=== PATIENT | female | born 1955 | race Caucasian/White ===

== ENCOUNTER 2019-10-16 06:39 | Emergency (ER) | payer MEDICARE, OTHER ==
[~2019-10-16] VITALS: Ht 172.7 cm; Wt 77.1 kg
[2019-10-16] MEDS ORDERED: NORVASC10 MG PO (06:49)
[2019-10-16] MEDS ORDERED: LISINOPRIL2.5 MG PO (06:49)
[2019-10-16] MEDS ORDERED: SIMVASTATIN80 MG PO (06:50)
[2019-10-16] MEDS ORDERED: TRAZODONE HCL50 MG PO (06:50)
[2019-10-16] MEDS ORDERED: VITAMIN D3400 UNI2 PO (06:50)
[2019-10-16] MEDS ORDERED: FLEXERIL PO (06:51)
[2019-10-16 07:24] LABS: URINE BILIRUBIN NEGATIVE (Negative); URINE BLOOD TRACE (Negative); URINE CLARITY CLEAR; URINE COLOR YELLOW; URINE GLUCOSE-RANDOM NEGATIVE (Negative); URINE KETONES 1+ (Negative); URINE NITRITE-REFLEX NEGATIVE (Negative); URINE PROTEIN NEGATIVE (Negative); URINE SPECIFIC GRAVITY 1.025 (1.005-1.030); URINE UROBILINOGEN 0.2 E.U./dl (0.2-1.0)
[2019-10-16 07:28] LABS: INFLUENZA A ANTIGEN Negative (Negative); INFLUENZA B ANTIGEN Negative (Negative)
[2019-10-16 07:33] LABS: URINE LEUKOCYTES-REFLEX 2+ (Negative)
[2019-10-16 07:40] LABS: SQUAMOUS >10 Many /LPF (0-3)
[2019-10-16 07:41] LABS: URINE RBC 0-2 Rare /HPF (0-2); URINE WBC-REFLEX 6-15 Few /HPF (0-5)
[2019-10-16 07:42] LABS: BACTERIA-REFLEX 1-9 Few /HPF (None Seen); HYALINE CASTS 0-3 Few /LPF (None Seen); MUCUS 0-3 Light strn/LPF (None Seen)
[2019-10-16 07:43] LABS: CALCIUM OXALATE 0-3 Few /LPF (None Seen); FINE GRANULAR CASTS 0-3 Few /LPF (None Seen)
[2019-10-16 07:44] LABS: HEMATOCRIT 40.5 % (37.0-47.0); HEMOGLOBIN 13.7 gm/dL (12.0-15.0); MCH 29.7 pg (26.0-34.0); MCHC 33.9 g/dL (28.0-37.0); MCV 87.5 fL (80.0-100.0); MPV 8.2 fl. (7.2-11.1); NUCLEATED RBCS 0 /100WBC; PLATELET COUNT* 311 thou/uL (150-400); RBC 4.62 mil/uL (4.20-5.00); RDW-CV 13.3 % (10.5-14.5); WBC 11.8 thou/uL (4.0-11.0)
[2019-10-16 08:01] LABS: CALCIUM 11.2 mg/dL (8.5-10.1); CREATININE 0.6 mg/dL (0.6-1.3); POTASSIUM 3.9 mmol/L (3.5-5.1)
[2019-10-16 08:06] LABS: ALBUMIN 3.2 g/dL (3.4-5.0); TOTAL BILIRUBIN 0.8 mg/dL (<0.1-1.0); TOTAL PROTEIN 6.4 g/dL (6.4-8.2)
[2019-10-16 08:22] LABS: ABSOLUTE EOSINOPHILS 0.1 thou/uL (0.0-0.7); ABSOLUTE LYMPHOCYTES 0.4 thou/uL (0.8-5.3); ABSOLUTE MONOCYTES 0.5 thou/uL (0.0-1.2); ABSOLUTE NEUTROPHILS 10.9 thou/uL (1.6-8.1)
[2019-10-16 08:23] LABS: PLATELET ESTIMATE ADEQUATE
[2019-10-16] MEDS ORDERED: KEFLEX500 M1 PO (09:44)
[2019-10-16] MEDS ORDERED: DOXYCYCLINE 10100 M2 PO (09:47)
[2019-10-16] MEDS ORDERED: ZOFRAN ODT4 MG DISSOLVE ×2 (09:47→09:58)
[2019-10-16] MEDS ORDERED: LEVAQUIN 750 M750 MG PO ×2 (09:57→09:58)
[2019-10-16 10:01] VITALS: BP 119/50
== END 2019-10-16 10:01 | disposition home or self-care (01) ==
LOC: M.ERS 06:39
PROVIDERS: Emergency Medicine Emergency Medical Services; Personal Emergency Response Attendant
DX: N39.0 Urinary tract infection, site not specified (principal); I10 Essential (primary) hypertension; Z90.13 Acquired absence of bilateral breasts and nipples; Z90.710 Acquired absence of both cervix and uterus; Z88.8 Allergy status to other drugs, medicaments and biological substances

== ENCOUNTER → 2021-04-20 | Outpatient (CLI) | payer MEDICARE ==
[~2021-04-20] MED LIST: DOXYCYCLINE 10100 M2 PO; FLEXERIL PO; KEFLEX500 M1 PO; LEVAQUIN 750 M750 MG PO; LISINOPRIL2.5 MG PO; NORVASC10 MG PO; SIMVASTATIN80 MG PO; TRAZODONE HCL50 MG PO; VITAMIN D3400 UNI2 PO; ZOFRAN ODT4 MG DISSOLVE
--- NOTE | 2021-04-21 15:15 | CARDNUC ---
[place] [address] CARDIAC NUCLEAR IMAGING REPORT Name: NILSA MENA Room: [facility]#: [id number] Admission: 04/20/21 Attend Phys: Fabian Lim MD Discharge: Date of : 51 Date of Service: 04/21/21 1514 Report #: [id number] THIS REPORT FOR: cc: Tonny Uriarte,Tonny Kohli MD [facility] ~ APPROVED REPORT Study performed: 04/20/2021 09:31:03 Indication: Chest pain, Dyspnea Patient Location: Out-Patient Stress Tech: Rylee Shea Stress Nurse: Tisha Hunter RN Ht: 5 ft 6 in Wt: 167 lbs BSA: 1.85 m2 BMI: 26.95 Medical History Medical History: Fatigue, HTN, Hyperlipidemia Medications: amlosipine, hctz, lisinopril, ntg, simvastatin Allergies: trtanus, tuberculin Cardiac Risk Factors: Age, HTN, Hyperlipidemia Exercise History: Indeterminate Resting Data Rest SPECT myocardial perfusion imaging was performed in supine position 30 minutes following the intravenous injection of 10.5 mCi of Tc-99m Sestamibi. Time of rest injection: 7:55 The images were gated to evaluate regional wall motion and calculate left ventricular ejection fraction. Administration Route: IV Administration Site: Right AC Pharmacologic Stress Pharmacologic stress test was performed by injecting Dobutamine 0.4mcg/kg/min IV push followed by the intravenous injection of 31.3 mCi of Tc99m Sestimibi. Time of stress injection: 09:55 Administration Route: IV Administration Site: Right AC Heart Rate at time of stress injection: 136 [place] [address] CARDIAC NUCLEAR IMAGING REPORT Name: TRINANILSA KNUTSON Room: [facility]#: [id number] Admission: 04/20/21 Attend Phys: Fabian Lim MD Discharge: Date of : 51 Date of Service: 04/21/21 1514 Report #: [id number] Gated Stress SPECT was performed 45 minutes after stress injection. The images were gated to evaluate regional wall motion and calculate left ventricular ejection fraction. Stress Test Details Stress Test: Pharmacological stress test performed using dobutamine initiated at 5 mcg/kg/min titrated sequentially 10, 20, 30 and 40 mcg/kg/min to target heart rate. Reason for pharmacologic stress test: physical limitation. HR Max Heart Rate (APMHR): 152 bpm Resting HR: 50 bpm Target HR (85% APMHR): 129 bpm Max HR Achieved: 139 bpm % of APMHR: 91 Recovery HR: 81 bpm BP Resting BP: 134/74 mmHg Max BP: 144/69 mmHg Recovery BP: 142/88 mmHg ECG Resting ECG: Sinus Rhythm, RBBB Stress ECG: Sinus Tachycardia, RBBB ST Change: None Arrhythmia: None Recovery ECG: Sinus Rhythm, RBBB Recovery ST Change: None Recovery Arrhythmia: None Clinical Reason for Termination: Completed protocol The patient had no significant cardiac symptoms with dobutamine infusion. Nurse Comments pt had caffeine in the morning. unable to walk on treadmill due to arthritis. Did dobutamine chaparrita Lopez order Stress ECG Conclusion The baseline twelve-lead EKG shows sinus rhythm with right bundle branch block. EKGs obtained during and post dobutamine infusion show sinus rhythm and sinus tachycardia with no significant ST segment changes when compared to baseline. There were no stress[place] [address] CARDIAC NUCLEAR IMAGING REPORT Name: NILSA MENA Room: [facility]#: [id number] Admission: 04/20/21 Attend Phys: Fabian Lim MD Discharge: Date of : 51 Date of Service: 04/21/21 1514 Report #: [id number] Study Quality Study: Fair Artifact: Moderate Diaphragmatic artifact Study Data At rest, the left ventricular ejection fraction was 71%.. Post stress, the left ventricular ejection was 66%.. TID = 1.16. Perfusion Perfusion images obtained at rest and post dobutamine stress show photopenia in the inferior wall and inferoapical wall with attenuation artifact noted in this region. No reversible defects are identified. Prone imaging was not obtained for comparison. Wall Motion Global LV systolic function is preserved. There is a region of hypokinesis involving the basal to mid inferior wall of uncertain significance. Nuclear Conclusion ECG Findings: negative for ischemia Clinical Findings: negative for ischemia Nuclear Findings: negative for ischemia Exercise Capacity: not assessed Left Ventricular Function: Preserved Perfusion images show no defect to suggest ischemia. There were fixed defects of the infra and inferoapical wall SPECT of the being diaphragmatic attenuation artifact. Global LV systolic function is preserved. This is not a high risk study. <Conclusion> The baseline twelve-lead EKG shows sinus rhythm with right bundle branch block. EKGs obtained during and post dobutamine infusion show sinus rhythm and sinus tachycardia with no significant ST segment changes when compared to baseline. There were no stress-induced arrhythmias. <ELECTRONICALLY SIGNED> By: Tonny Blunt MD, FACC 04/21/21 1514 1514 1514 Tonny Blunt MD, FACC /INF
== END ==
LOC: M.NUC 07:20
PROVIDERS: ATTEND Internal Medicine Cardiovascular Disease
DX: I45.10 Unspecified right bundle-branch block (principal); R00.0 Tachycardia, unspecified